=== PATIENT | female | born 1985 | race Two or more races ===

== ENCOUNTER 2019-05-01 13:37 | Emergency (ER) | payer MEDICAID ==
[~2019-05-01] VITALS: Ht 167.6 cm; Wt 84.4 kg
[2019-05-01 15:17] LABS: Basophils # (auto) 0 uL; Basophils % (auto) 0.4 % (0.0-2.0); Eosinophils # (auto) 0 uL; Eosinophils % (auto) 0.5 % (0.0-7.0); Hematocrit 41.1 % (36.0-46.0); Hemoglobin 13.9 g/dL (12.2-16.2); Lymphocytes # (auto) 1.3 uL; Mean Corpuscular Hemoglobin 29.3 pg (28.0-32.0); Mean Corpuscular Hgb Conc. 33.7 g/dL (32.0-36.0); Mean Corpuscular Volume 86.9 fL (80.0-100.0); Monocytes # (auto) 0.7 uL; Monocytes % (auto) 9.1 % (0.0-12.0); Neutrophils # (auto) 5.4 uL; Platelet Count (auto) 325 10^3/uL (140-450); Red Blood Cells 4.73 10^6/uL (4.0-5.20); Red Cell Distribution Width 13.4 % (11.8-14.3); White Blood Cell 7.4 10^3/uL (4.4-10.8)
[2019-05-01 15:38] LABS: Albumin 4.3 g/dL (3.4-5.0); Potassium 3.9 mmol/L (3.5-5.1)
[2019-05-01 15:42] LABS: BUN/Creatinine Ratio 11.8; Bilirubin, Total 0.6 mg/dL (0.2-1.0); Total Protein 8.7 g/dL (6.4-8.2)
[2019-05-01] MEDS ORDERED: IBUPROFEN 600 MG TAB PO ONE ×2 (17:55→18:15)
[2019-05-01 18:15] VITALS: BP 121/77
== END 2019-05-01 18:17 | disposition home or self-care (01) ==
LOC: ER 13:37
DX: N64.4 Mastodynia (principal); J45.909 Unspecified asthma, uncomplicated; Z90.13 Acquired absence of bilateral breasts and nipples; Z88.8 Allergy status to other drugs, medicaments and biological substances
CPT/HCPCS: 36415; 76642; 80053; 81025; 85025

== ENCOUNTER 2023-01-02 11:23 | Emergency (ER) | payer MEDICAID ==
[~2023-01-02] VITALS: Ht 167.6 cm; Wt 80.2 kg
[2023-01-02 11:40] VITALS: BP 108/77; PULSE 81; RESP 14; O2SAT 97
[2023-01-02 12:04] LABS: Urine Bacteria NONE SEEN /hpf (None Seen); Urine Blood 1+ /uL (Negative); Urine Mucus FEW (None Seen); Urine WBC 1 /hpf (0 - 5)
[2023-01-02 12:13] LABS: Basophils # (auto) 0 10 ^3/uL (0-0.2); Eosinophils # (auto) 0 10 ^3/uL (0-0.8); Hemoglobin 12.8 g/dL (12.2-16.2); Lymphocytes # (auto) 0.7 10 ^3/uL (0.4-5.4); Monocytes # (auto) 0.4 10 ^3/uL (0-1.3); Neutrophils # (auto) 5.3 10 ^3/uL (1.6-8.6); White Blood Cell 6.5 10^3/uL (4.4-10.8)
[2023-01-02 12:16] LABS: Basophils % (auto) 0.4 % (0.0-2.0); Eosinophils % (auto) 0.1 % (0.0-7.0); Mean Corpuscular Hemoglobin 27.2 pg (28.0-32.0); Mean Corpuscular Hgb Conc. 32.8 g/dL (32.0-36.0); Mean Corpuscular Volume 82.8 fL (80.0-100.0); Monocytes % (auto) 6.9 % (0.0-12.0); Neutrophils % (auto) 81.6 % (37.0-80.0); Nucleated Red Blood Cells % 0.1 %; Red Blood Cells 4.71 10^6/uL (4.0-5.20); Red Cell Distribution Width 17.1 % (11.8-14.3)
[2023-01-02 12:56] LABS: Albumin 3.8 g/dL (3.4-5.0); Calcium 8.6 mg/dL (8.5-10.1); Potassium 3.7 mmol/L (3.5-5.1)
[2023-01-02 13:01] LABS: BUN/Creatinine Ratio 13.8 (10.0-20.0); Bilirubin, Total 0.4 mg/dL (0.2-1.0); Total Protein 8.2 g/dL (6.4-8.2)
== END 2023-01-02 17:12 | disposition left against medical advice (07) ==
LOC: ER 11:23
DX: R10.32 Left lower quadrant pain (principal); R11.0 Nausea; R19.7 Diarrhea, unspecified; Z53.21 Procedure and treatment not carried out due to patient leaving prior to being seen by health care provider
CPT/HCPCS: 36415; 80053; 81001; 81025; 85025

== ENCOUNTER 2025-03-22 06:30 | Emergency (ER) | payer MEDICAID ==
[~2025-03-22] VITALS: Ht 167.6 cm; Wt 79.0 kg
[2025-03-22 06:36] VITALS: TEMP 97.5
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
[2025-03-22] MEDS: HYDROcodone-ACET 10/325MG TAB PO ONE (07:40)
--- NOTE | 2025-03-22 07:44 | DVH ---
CLINICAL INFORMATION: Fall injury. TECHNIQUE: 3 views of the left shoulder were obtained. COMPARISON: None FINDINGS: No acute fracture or dislocation. No significant arthropathy. Overlying soft tissues are g rossly unremarkable. IMPRESSION: No evidence of acute bony abnormality.
--- NOTE | 2025-03-22 07:44 | DVH ---
CLINICAL INFORMATION: Fall injury. TECHNIQUE: 3 views of the pelvis and left hip were obtained. COMPARISON: None FINDINGS: No acute fracture or dislocation. Mild joint space narrowing in both hips, left slightly gr eater than right. Adjacent soft tissues are unremarkable. IMPRESSION: No evidence of acute bony abnormality.
--- NOTE | 2025-03-22 07:47 | DVH ---
EXAM: XY L RIB X RAY HISTORY: Fall injury. COMPARISON: CHEST XRAY 1 VIEW on DOS: 06/25/20 TECHNIQUE: Frontal view of the chest and AP and oblique views of the left ribs were performed. FINDINGS: Lungs are clear. No focal consolidation, pneumothorax, or pleural effusion. Cardiac and mediastinal c ontours are within normal limits in size. Pulmonary vasculature is normal. No acute fracture visualiz ed in the left ribs. IMPRESSION: No evidence of rib fracture or other acute intrathoracic process.
--- NOTE | 2025-03-22 07:52 | DVH ---
EXAM: XY L ELBOW 3 VIEW XRAY HISTORY: FALL COMPARISON: None TECHNIQUE: Three views of the left elbow were performed. FINDINGS: No acute fracture or effusion are identified about the left elbow. No significant degenerative change s. IMPRESSION: 1. No acute fracture of the left elbow.
[2025-03-22] MEDS ORDERED: TRAM50TA2 PO (07:56)
[2025-03-22 08:04] VITALS: BP 123/81; PULSE 61; RESP 18; O2SAT 98
== END 2025-03-22 08:19 | disposition home or self-care (01) ==
LOC: ER 06:33
DX: S20.212A Contusion of left front wall of thorax, initial encounter (principal); S50.02XA Contusion of left elbow, initial encounter; S70.02XA Contusion of left hip, initial encounter; J45.909 Unspecified asthma, uncomplicated; F41.9 Anxiety disorder, unspecified; Z85.3 Personal history of malignant neoplasm of breast; Z90.13 Acquired absence of bilateral breasts and nipples; Z91.81 History of falling; Z88.1 Allergy status to other antibiotic agents; Z88.8 Allergy status to other drugs, medicaments and biological substances
CPT/HCPCS: 71101; 73030; 73080; 73502

== ENCOUNTER 2025-04-20 06:31 | Emergency (ER) | payer MEDICAID ==
[~2025-04-20] VITALS: Ht 167.6 cm; Wt 77.1 kg
[~2025-04-20 06:31] MED LIST: TRAM50TA2 PO
[2025-04-20 06:33] VITALS: BP 94/75; PULSE 74; RESP 16; TEMP 98.1; O2SAT 98
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
--- NOTE | 2025-04-20 07:21 | DVH ---
EXAM: XY R ELBOW 3 VIEW XRAY HISTORY: Fall/R/o Fracture, dislocation COMPARISON: XY L ELBOW 3 VIEW XRAY on DOS: 03/22/25 TECHNIQUE: Three views of the right elbow were performed. FINDINGS: There is an acute fracture through the radial head. There is a tiny acute fracture of the superior most aspect of the olecranon process. Elbow joint effusion noted. Regional soft tissue swelling of the elbow. IMPRESSION: 1. Acute fractures of the radial head and olecranon process. 2. Elbow joint effusion. 3. Soft tissue swelling. 4. No dislocation.
[2025-04-20] MEDS ORDERED: IBUP-1455 PO (07:43)
[2025-04-20] MEDS: HYDROcodone-ACET 7.5/325MG TAB PO ONE (07:58)
== END 2025-04-20 08:02 | disposition home or self-care (01) ==
LOC: ER 06:31
DX: S52.121A Displaced fracture of head of right radius, initial encounter for closed fracture (principal); S52.021A Displaced fracture of olecranon process without intraarticular extension of right ulna, initial encounter for closed fracture; S50.311A Abrasion of right elbow, initial encounter; J45.909 Unspecified asthma, uncomplicated; Z88.1 Allergy status to other antibiotic agents; Z88.8 Allergy status to other drugs, medicaments and biological substances; V18.4XXA Pedal cycle driver injured in noncollision transport accident in traffic accident, initial encounter; Y93.55 Activity, bike riding; Y92.89 Other specified places as the place of occurrence of the external cause; Y99.8 Other external cause status
CPT/HCPCS: 29105; 73080